=== PATIENT | female | born 1985 | race Caucasian/White ===

== ENCOUNTER 2016-10-07 17:50 | Emergency (ER) | payer BC ==
[2016-10-07] MEDS ORDERED: NORMAL SALINE 1000 ML 1,000 ML IV ONE (22:02)
--- NOTE | 2016-10-07 22:05 | ER Document Report ---
ED Medical Screen (RME) - General Chief Complaint: Palpitations Stated Complaint: DIFFICULTY BREATHING Mode of Arrival: Ambulatory Information source: Patient Notes: Patient reports 2 month history of palpitations. States today she woke up and has had severe diarrhea and vomiting with two episodes of these palpations, the last one started around 1630 this afternoon and is still present. Associated symptoms back pain, abdominal pain, fever, chills, nausea and vomiting. TRAVEL OUTSIDE OF THE [place] IN LAST 30 DAYS: No - Related Data Allergies/Adverse Reactions: No Known Allergies Allergy (Unverified 10/07/16 18:25) Past Medical History - Social History Chew tobacco use (# tins/day): No Frequency of alcohol use: None Drug Abuse: None Physical Exam - Vital signs Vitals: Temp Pulse Resp BP Pulse Ox 99.1 F 127 H 22 H 115/73 99 10/07/16 18:16 10/07/16 18:16 10/07/16 18:16 10/07/16 18:16 10/07/16 18:16 - Notes Notes: General: alert and oriented, anxious CV: tachycardic rate Course - Vital Signs Vital signs: Temp Pulse Resp BP Pulse Ox 99.1 F 127 H 22 H 115/73 99 10/07/16 18:16 10/07/16 18:16 10/07/16 18:16 10/07/16 18:16 10/07/16 18:16
[2016-10-07 23:01] LABS: HEMATOCRIT 40.2 % (36.0-47.0)
[2016-10-07 23:03] LABS: ALANINE AMINOTRANSFERASE 26 U/L (9-52); ALBUMIN 4.2 g/dL (3.5-5.0); ALKALINE PHOSPHATASE 93 U/L (38-126); ANION GAP 15 (5-19); ASPARTATE AMINO TRANSFERASE 19 U/L (14-36); BILIRUBIN,TOTAL 0.9 mg/dL (0.2-1.3); BLOOD UREA NITROGEN 9 mg/dL (7-20); CALCIUM 9.3 mg/dL (8.4-10.2); CARBON DIOXIDE 19 mmol/L (22-30); CHLORIDE 105 mmol/L (98-107); CREATINE KINASE 36 U/L (30-135); CREATININE RESULT 0.58 mg/dL (0.52-1.25); GLUCOSE 110 mg/dL (75-110); HEMOGLOBIN 13.7 g/dL (12.0-15.5); HGB HCT DIFFERENCE 0.9; MEAN CORPUSCULAR HEMOGLOBIN 30.3 pg (27.0-33.4); MEAN CORPUSCULAR HGB CONC 34.1 g/dL (32.0-36.0); MEAN CORPUSCULAR VOLUME 89 fl (80-97); POTASSIUM 3.6 mmol/L (3.6-5.0); RED BLOOD COUNT 4.52 10^6/uL (3.72-5.28); SODIUM 138.9 mmol/L (137-145); TOTAL PROTEIN 7.2 g/dL (6.3-8.2); WHITE BLOOD COUNT 10.1 10^3/uL (4.0-10.5)
[2016-10-07 23:09] LABS: APPEARANCE,URINE CLEAR; BILIRUBIN,URINE NEGATIVE (NEGATIVE); GLUCOSE, URINE NEGATIVE (NEGATIVE); KETONES,URINE 20 mg/dL (NEGATIVE); LEUKOCYTE ESTERASE,URINE NEGATIVE (NEGATIVE); NITRITE,URINE NEGATIVE (NEGATIVE); PROTEIN,URINE NEGATIVE (NEGATIVE); URINE SPECIFIC GRAVITY 1.033; UROBILINOGEN,URINE NEGATIVE mg/dL (<2.0)
[2016-10-07 23:15] LABS: BAND NEUTROPHILS % (MANUAL) 9 % (3-5); BASOPHILS % (MANUAL) 1 % (0-2); EOSINOPHILS % (MANUAL) 0 % (0-6); LYMPHOCYTES % (MANUAL) 3 % (13-45); TOTAL CELLS COUNTED 100
[2016-10-07 23:17] LABS: TOXIC GRANULATION 1+
[2016-10-07 23:18] LABS: PLATELET CLUMPS PRESENT
[2016-10-07 23:19] LABS: CREATINE KINASE MB < 0.22 ng/mL (<4.55); TROPONIN I < 0.012 ng/mL
[2016-10-07 23:22] LABS: URINE BARBITURATES SCREEN NEGATIVE; URINE METHADONE SCREEN NEGATIVE; URINE PHENCYCLIDINE SCREEN NEGATIVE
--- NOTE | 2016-10-07 23:59 | EKG REPORT ---
SEVERITY:- ABNORMAL ECG - SINUS TACHYCARDIA VENTRICULAR PREMATURE COMPLEX NONSPECIFIC ST-T ABNORMALITIES, DIFFUSE LEADS : Confirmed by: Ashleigh Gtz 07-Oct-2016 23:58:44
--- NOTE | 2016-10-08 00:31 | ER Document Report ---
ED General - General Chief Complaint: Palpitations Stated Complaint: DIFFICULTY BREATHING Mode of Arrival: Ambulatory TRAVEL OUTSIDE OF THE [place] IN LAST 30 DAYS: No - HPI Patient complains to provider of: palpitations diarrhea shortness of breath Notes: Patient coming in for evaluation of palpitations and diarrhea. Patient states proximal one year ago underwent gastric bypass. Patient states over the last few days having palpitations and diarrhea. Patient states she has not been drinking as much water she normally does. Otherwise patient denies any other past medical history denies any fevers chills nausea vomiting. Denies recent travel denies recent antibiotics. - Related Data Allergies/Adverse Reactions: No Known Allergies Allergy (Unverified 10/07/16 18:25) Past Medical History - General Information source: Patient - Social History Smoking Status: Never Smoker Chew tobacco use (# tins/day): No Frequency of alcohol use: None Drug Abuse: None Family History: Reviewed & Not Pertinent Patient has suicidal ideation: No Patient has homicidal ideation: No GI Medical History: Reports: Hx Gastroesophageal Reflux Disease Psychiatric Medical History: Reports: Hx Depression Past Surgical History: Reports: Hx Abdominal Surgery - lap band, gastric bypass Review of Systems - Review of Systems Constitutional: No symptoms reported EENT: No symptoms reported Cardiovascular: Palpitations Respiratory: No symptoms reported Gastrointestinal: Diarrhea Genitourinary: No symptoms reported Female Genitourinary: No symptoms reported Musculoskeletal: No symptoms reported Skin: No symptoms reported Hematologic/Lymphatic: No symptoms reported Neurological/Psychological: No symptoms reported Physical Exam - Vital signs Vitals: Temp Pulse Resp BP Pulse Ox 99.1 F 127 H 22 H 115/73 99 10/07/16 18:16 10/07/16 18:16 10/07/16 18:16 10/07/16 18:16 10/07/16 18:16 Interpretation: Tachycardic - General General appearance: Appears well, Alert - HEENT Head: Normocephalic, Atraumatic Eyes: Normal Pupils: PERRL - Respiratory Respiratory status: No respiratory distress Chest status: Nontender Breath sounds: Normal Chest palpation: Normal - Cardiovascular Rhythm: Regular Heart sounds: Normal auscultation Murmur: No - Abdominal Inspection: Normal Distension: No distension Bowel sounds: Normal Tenderness: Nontender Organomegaly: No organomegaly - Back Back: Normal, Nontender - Extremities General upper extremity: Normal inspection, Nontender, Normal color, Normal ROM , Normal temperature General lower extremity: Normal inspection, Nontender, Normal color, Normal ROM , Normal temperature, Normal weight bearing. No: Cj's sign - Neurological Neuro grossly intact: Yes Cognition: Normal Orientation: AAOx4 [place] Coma Scale Eye Opening: Spontaneous [place] Coma Scale Verbal: Oriented [place] Coma Scale Motor: Obeys Commands [place] Coma Scale Total: 15 Speech: Normal Motor strength normal: LUE, RUE, LLE, RLE Sensory: Normal - Psychological Associated symptoms: Normal affect, Normal mood - Skin Skin Temperature: Warm Skin Moisture: Dry Skin Color: Normal Course - Re-evaluation Re-evalutation: 10/08/16 04:20 Patient's heart rate improved with IV fluids more consistent with dehydration. No critical etiology seen. Patient resting comfortably upon evaluation. Patient will be discharged home patient encouraged to drink plenty water nausea medication will be given to the patient. Patient also encouraged follow-up with their PCP provided. Patient states understanding agrees to plan 10/08/16 04:21 - Vital Signs Vital signs: Temp Pulse Resp BP Pulse Ox 99.3 F 115 H 15 113/63 100 10/08/16 01:38 10/08/16 01:38 10/08/16 01:38 10/08/16 01:38 10/08/16 01:38 - Laboratory Result Diagrams: 10/07/16 22:35 10/07/16 22:35 Laboratory results interpreted by me: 10/07/16 10/07/16 10/07/16 22:35 22:35 22:52 Seg Neuts % (Manual) 82 H Band Neutrophils % 9 H Lymphocytes % (Manual) 3 L Abs Neuts (Manual) 9.2 H Abs Lymphs (Manual) 0.4 L Carbon Dioxide 19 L Urine Ketones 20 H Urine Ascorbic Acid 20 H Discharge - Discharge Clinical Impression: Palpitations, Dehydration Diarrhea Qualifiers: Diarrhea type: unspecified type Qualified Code(s): R19.7 - Diarrhea, unspecified Condition: Good Disposition: HOME, SELF-CARE Instructions: Palpitations (Irregular or Rapid Heartrate) ([facility]), Diarrhea, Nonspecific ([facility]), Gastroenteritis (adult) ([facility]) Additional Instructions: Please drink plenty of water to stay hydrated. Please follow up with a primary provider Prescriptions: Ondansetron [Zofran Odt 4 mg Tablet] 1 - 2 tab PO Q4H PRN #20 tab.rapdis PRN Reason: For Nausea/Vomiting Forms: Return to Work Referrals: CHANCE TRAN MD [ACTIVE STAFF] - Follow up as needed GRISEL DRAKE MD [ACTIVE STAFF] - Follow up as needed
[2016-10-08 01:42] VITALS: BP 113/63
== END 2016-10-08 01:27 | disposition home or self-care (01) ==
LOC: ER 17:50
DX: E86.0 Dehydration (principal); R00.2 Palpitations; R06.02 Shortness of breath; R19.7 Diarrhea, unspecified
CPT/HCPCS: 93005; 99285; 96360; 36415; 82553; 82550; 84703; 85025; 80053; 81001; 84484; 85379; 71020; 93010; G0479; J7030; 80307